=== PATIENT | female | born 1935 | race Caucasian/White ===

== ENCOUNTER 2018-08-02 08:26 | Emergency (ER) | payer OTHER ==
--- NOTE | 2018-08-02 08:29 | PDOC ---
Attending Attestation - Resident Resident Name: Jamaal Jaime - HPI HPI: 08/02/18 10:08 Pt presents to the ED complaining of the acute onset of severe vertigo this AM, with nausea, vomiting and diffuse weakness. 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 Daughter states that she did not loose consciousness, but became very weak and thus had difficulty speaking. Daughter reports that symptoms are identical to prior episodes of vertigo. Symptoms are prevented by taking meclizine, but patient does not take meclizine regularly because her assistant education director has told her that it interferes with her meds. 08/02/18 10:08 08/02/18 10:24 08/02/18 10:39 - Physicial Exam PE: 08/02/18 10:43 Agree with resident exam. PAteint is uncomfortable, and keeps her eyes closed, but is arousable to loud voice and is oriented x 3. No nystagmus. Abdomen is soft, non tender and non distended. - Medical Decision Making 08/02/18 10:44 Pt presents to the ED complaining of acute exacerbation of her chronic vertigo. Denies other complaints. Denies syncope. Will treat with IVF and meclizine, check labs and reassess. Will likely call PMD for discharge planning if labs are normal.
--- NOTE | 2018-08-02 08:31 | PDOC ---
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 According to the family the patient has had vertigo for over 40 years and they strongly believe this is her usual vertigo which is affecting her today. The family notes that the patient has not been able to keep any food down without vomiting. They also note that her vomiting episodes are food induced and is nonbloody and nonbilious. She denies chest pain, shortness of breath and headache. She denies fever, chills and diarrhea. She denies dysuria, frequency, urgency and hematuria. Allergies: NKA, NKDA Past surgical history: Hysterectomy, pacemaker Social history: No alcohol, tobacco and drug use PCP - Nehemias Lopez Neurologist: Jamie Vitale - [phone] Past History - Past Medical History Allergies/Adverse Reactions: Allergies Allergy/AdvReac Type Severity Reaction Status Date / Time No Known Allergies Allergy Verified 08/27/15 10:52 Home Medications: Ambulatory Orders Clopidogrel Bisulfate [Plavix -] 75 mg PO DAILY 08/04/15 Rosuvastatin Calcium [Crestor] 20 mg PO HS 08/04/15 metFORMIN HCL [Metformin HCl] 500 mg PO BID 08/04/15 Aspirin [Aspirin EC] 81 mg PO DAILY 08/02/18 Baclofen [Lioresal -] 10 mg PO HS 08/02/18 Betahistine HCl [Betahistine] 6 mg PO PRN PRN 08/02/18 Diltiazem HCl [Diltiazem 24Hr Cd] 120 mg PO DAILY 08/02/18 Empagliflozin [Jardiance] 10 mg PO DAILY 08/02/18 Gabapentin [Neurontin -] 100 mg PO HS 08/02/18 Lisinopril [Prinivil] 10 mg PO DAILY 08/02/18 Meclizine HCl [Antivert -] 25 mg PO Q6HPO PRN 08/02/18 Oxcarbazepine [Trileptal -] 150 mg PO BID 08/02/18 Asthma: Yes CVA: Yes (03/2015) COPD: No Diabetes: Yes HTN: Yes Hypercholesterolemia: Yes Psychiatric Problems: Yes (anxiety) Seizures: Yes - Surgical History Cardiac Surgery: Yes (pacemaker) - Immunization History Immunization Up to Date: No - Suicide/Smoking/Psychosocial Hx Smoking History: Unknown if ever smoked Have you smoked in the past 12 months: No Number of Cigarettes Smoked Daily: 0 Cigars Per Day: 0 Hx Alcohol Use: No Drug/Substance Use Hx: No Substance Use Type: None Hx Substance Use Treatment: No Review of Systems - Review of Systems Able to Perform ROS?: No (Non-responsive) *Physical Exam - Physical Exam Comments: GENERAL: Obese, lying on the bed not moving. Responds to pain. Mild apparent distress. HEENT: Normocephalic, atraumatic. PERRL, EOM intact. CARDIOVASCULAR: Normal S1, S2. Regular rate and rhythm. PULMONARY: No evidence of respiratory distress. Lungs clear to auscultation bilaterally. No wheezing, rales or rhonchi. ABDOMEN: Soft, non-distended, non-tender. EXTREMITIES: Limited ROM in all four extremities. left arm contracted. SKIN: Warm, dry. No rash NEUROLOGICAL: left arm weakness Neurologic: positive: lease analyst II-XII NML intact, Alert, Respond to painful stimul, Sensory Deficit (right arm). negative: Facial Droop, Numbness ED Treatment Course - LABORATORY CBC & Chemistry Diagram: 08/02/18 09:28 08/02/18 09:28 Medical Decision Making - Medical Decision Making 83 yo F w a pmh of diabetes, pacemaker, HTN, HLD, CVA (2014)(right sided weakness) and vertigo presents to the ER [facility] with dizziness, nausea and vomiting since early this morning. According to the family the patient has had vertigo for over 40 years and they strongly believe this is her usual vertigo which is affecting her today. The family notes that the patient has not been able to keep any food down without vomiting. They also note that her vomiting episodes are food induced and is nonbloody and nonbilious. She denies chest pain, shortness of breath and headache. She denies fever, chills and diarrhea. She denies dysuria, frequency, urgency and hematuria. The family truly believes this presentation is secondary to the patient's Vertigo and they do not want many interventions performed on her and do not want her admitted to the hospital. IV access obtained using US guidance. Labs sent. Family refuses to give urine or let us perform a cat scan. I called up the patient's PCP's office who is very familiar with this presentation for this patient. They stated she can be seen in their office tomorrow at 1 pm and agree the patient can likely be discharged safely from the hospital. Family and patient feel better after symptomatic treatment with meclizine and request discharge. - Will send her home with PCP Fu and Strict return precautions. *DC/Admit/Observation/Transfer Diagnosis at time of Disposition: Vertigo - Discharge Dispostion Disposition: HOME Condition at time of disposition: Stable Decision to Admit order: No - Referrals Referrals: Nehemias Lopez PA [Primary Care Provider] - - Patient Instructions Printed Discharge Instructions: Vertigo (Alternative Therapy), DI for Vertigo Additional Instructions: You came into the ER with nausea, vomiting, and dizziness. We believe you are experiencing a vertigo episode. We looked at your blood and saw no abnormalities. We called up your primary care doctors office and they said they can see you as an outpatient tomorrow. PLEASE MAKE SURE TO CALL UP DR. LOPEZ'S OFFICE AND SCHEDULE AN APPOINTMENT FOR TOMORROW. Come back to the ER immeidately if your pain worsens, you start vomiting, or have any other new or worsening concerns. Thank you for coming to the [facility] ER. We hope you feel better soon! Print Language: TAMAZIGHT - Post Discharge Activity
[2018-08-02] MEDS ORDERED: ONDANSETRON 4 MG/2 ML VIAL IVPUSH ONE (08:33)
[2018-08-02] MEDS: SODIUM CHLORIDE 1,000 ML IV STA ×2 (08:44→09:39)
[2018-08-02] MEDS ORDERED: ONDANSETRON 4 MG/2 ML VIAL ONE (08:44)
[2018-08-02 08:48] VITALS: BMI 32.3
[2018-08-02 09:41] LABS: BASO % 0.2 % (0-2.0); EOS % 1.2 % (0-4.5); HEMOGLOBIN 10.5 GM/dL (10.7-15.3); LYMPH % 18.2 % (8-40); MCH 21.6 pg (25.7-33.7); MEAN CELL VOLUME 69.8 fl (80-96); MONO % 5.4 % (3.8-10.2); PLATELET COUNT 289 K/MM3 (134-434); RBC 4.87 M/mm3 (3.60-5.2); RDW 18.4 % (11.6-15.6); WHITE BLOOD COUNT 9.1 K/mm3 (4.0-10.0)
[2018-08-02 09:53] LABS: INR 1.08 (0.83-1.09); PROTHROMBIN TIME (PATIENT) 12.8 SEC (9.7-13.0)
[2018-08-02] MEDS ORDERED: MECLIZINE HCL 25 MG TABLET (FP) PO ONE ×3 (10:01→11:03)
[2018-08-02] MEDS ORDERED: MECLIZINE HCL 25 MG TABLET (FP) ONE ×2 (10:05→11:07)
[2018-08-02 10:27] LABS: ALBUMIN 3.4 g/dl (3.4-5.0); ALK PHOS 116 U/L (45-117); ANION GAP 7 MMOL/L (8-16); BILIRUBIN,TOTAL 0.2 mg/dL (0.2-1); BLOOD UREA NITROGEN 11 mg/dL (7-18); CALCIUM 8.7 mg/dL (8.5-10.1); CHLORIDE 103 mmol/L (98-107); CO2 26 mmol/L (21-32); CREATININE 0.9 mg/dL (0.55-1.3); GLUCOSE,RANDOM 188 mg/dL (74-106); MAGNESIUM 2.1 mg/dL (1.8-2.4); N-TERMINAL BNP 98.7 pg/ml (5-450); SGOT/AST 20 U/L (15-37); SGPT/ALT 16 U/L (13-61); SODIUM 136 mmol/L (136-145); TOT PROT 7.8 g/dl (6.4-8.2)
[2018-08-02 12:10] VITALS: TEMP 97.8
[2018-08-02 12:13] LABS: ANISOCYTOSIS 2+; MACROCYTOSIS 0; OVALOCYTE 2+; PLATELET ESTIMATE NORMAL
[2018-08-02 13:21] VITALS: BP 134/79; PULSE 76
--- NOTE | 2018-08-03 08:28 | EKG ---
Test Reason : Blood Pressure : / mmHG Vent. Rate : 068 BPM Atrial Rate : 068 BPM P-R Int : 184 ms QRS Dur : 204 ms QT Int : 496 ms P-R-T Axes : 074 -71 073 degrees QTc Int : 527 ms Atrial-sensed ventricular-paced rhythm ABNORMAL ECG WHEN COMPARED WITH ECG OF 28-AUG-2015 12:59, ELECTRONIC VENTRICULAR PACEMAKER HAS REPLACED SINUS RHYTHM Confirmed by ANNA REYNOLDS, ANANT ([id number]) on 08/03/2018 8:28:07 AM Referred By: Confirmed By:ANANT CASTILLO MD
== END 2018-08-02 13:21 | disposition home or self-care (01) ==
LOC: JER 08:26
PROC: 3E033GC Introduction of Other Therapeutic Substance into Peripheral Vein, Percutaneous Approach (ICD-10-PCS; principal; 2018-08-02)
PROC: 3E0337Z Introduction of Electrolytic and Water Balance Substance into Peripheral Vein, Percutaneous Approach (ICD-10-PCS; 2018-08-02)
DX: R42 Dizziness and giddiness (principal); I10 Essential (primary) hypertension; E78.5 Hyperlipidemia, unspecified; Z86.73 Personal history of transient ischemic attack (TIA), and cerebral infarction without residual deficits; R53.1 Weakness
CPT/HCPCS: 36415; 71045-TC-FY; 80053; 82140; 82962; 83605; 83735; 83880; 84484; 85025; 85610; 86850; 86900; 86901; 87040; 93005; 93010; 96361; 96374; 99284-25; J7030

== ENCOUNTER 2020-12-12 18:37 | Inpatient (IN) | payer OTHER ==
[2020-12-12] MEDS ORDERED: ACETAMINOPHEN 500 MG TABLET (FP) PO ONE (19:42)
[2020-12-12] MEDS ORDERED: ACETAMINOPHEN 325 MG TABLET (FP) ONE (20:43)
[2020-12-12] MEDS ORDERED: morphine CARPU-JECT 4 MG/1 ML DISP.SYRIN IVPUSH ONE (20:50)
[2020-12-12] MEDS ORDERED: morphine SULFATE 4 MG/ML VIAL ONE (21:57)
[2020-12-12 23:42] LABS: BASO % 0.2 % (0-2.0); HEMOGLOBIN 11.2 GM/dL (10.7-15.3); LYMPH % 5.4 % (8-40); MCH 22.8 pg (25.7-33.7); MCHC 31.9 g/dl (32.0-36.0); MEAN CELL VOLUME 71.4 fl (80-96); MEAN PLT VOLUME 8.6 fl (7.5-11.1); MONO % 4.3 % (3.8-10.2); NEUT % 90.1 % (42.8-82.8); PLATELET COUNT 219 10^3/uL (134-434); RDW 18.2 % (11.6-15.6); WHITE BLOOD COUNT 16.1 K/mm3 (4.0-10.0)
[2020-12-12 23:54] LABS: CALCIUM 8.5 mg/dL (8.5-10.1)
[2020-12-12 23:55] LABS: ALBUMIN 3.4 g/dl (3.4-5.0); BLOOD UREA NITROGEN 11.6 mg/dL (7-18)
[2020-12-12 23:58] LABS: CREATININE 0.9 mg/dL (0.55-1.3)
[2020-12-12 23:59] LABS: BILIRUBIN,TOTAL 0.3 mg/dL (0.2-1); TOT PROT 7.8 g/dl (6.4-8.2)
[2020-12-13] MEDS ORDERED: ACETAMINOPHEN 325 MG TABLET (FP) PO PRN (02:28)
[2020-12-13] MEDS ORDERED: MELATONIN 5 MG TABLETS PO ONE (02:53)
[2020-12-13 07:05] LABS: HEMOGLOBIN 11.5 GM/dL (10.7-15.3); MCH 23.3 pg (25.7-33.7); MCHC 31.9 g/dl (32.0-36.0); MEAN CELL VOLUME 72.9 fl (80-96); MEAN PLT VOLUME 8.7 fl (7.5-11.1); PLATELET COUNT 226 10^3/uL (134-434); RBC 4.94 M/mm3 (3.60-5.2); RDW 18.1 % (11.6-15.6); WHITE BLOOD COUNT 12.2 K/mm3 (4.0-10.0)
[2020-12-13 07:34] LABS: ALBUMIN 3.4 g/dl (3.4-5.0); CALCIUM 8.5 mg/dL (8.5-10.1)
[2020-12-13 07:35] LABS: BLOOD UREA NITROGEN 11.8 mg/dL (7-18); MAGNESIUM 2.3 mg/dL (1.8-2.4)
[2020-12-13 07:37] LABS: CREATININE 0.8 mg/dL (0.55-1.3); PHOSPHOROUS 3.1 mg/dL (2.5-4.9)
[2020-12-13 07:38] LABS: BILIRUBIN,TOTAL 0.5 mg/dL (0.2-1)
[2020-12-13 07:39] LABS: TOT PROT 7.8 g/dl (6.4-8.2)
[2020-12-13] MEDS ORDERED: MORPHINE SULFATE 2 MG/ML VIAL IVPUSH PRN ×2 (08:00→09:25)
[2020-12-13] MEDS: INSULIN SLIDING SCALE (NOVOLOG) 1 VIAL SQ SCH ×2 (08:36→11:46)
[2020-12-13] MEDS ORDERED: ACETAMINOPHEN 1000 MG/100 ML VIAL (NON FORMULARY) IVPB PRN (09:24)
[2020-12-13 09:26] LABS: INR 1.11 (0.83-1.09); PROTHROMBIN TIME (PATIENT) 13.4 SEC (9.7-13.0)
[2020-12-13 09:29] LABS: ACTIVATED PTT 31.8 SECONDS (25.2-36.5)
[2020-12-13] MEDS ORDERED: MORPHINE SULFATE 2 MG/ML VIAL ONE (13:07)
[2020-12-13 15:31] LABS: EPI CELLS 5 /uL (0-25.1); HYALINE CASTS 2 /uL (0-3.1); PH,URINE 7.5 (5.0-8.0); URINE APPEARANCE CLOUDY; URINE BACTERIA >9,000 /uL (0-1359); URINE BILIRUBIN NEGATIVE (NEGATIVE); URINE COLOR YELLOW; URINE GLUCOSE (UA) 3+ (NEGATIVE); URINE KETONE 3+ (NEGATIVE); URINE LEUK ESTERASE 2+ (NEGATIVE); URINE NITRITE NEGATIVE (NEGATIVE); URINE PROTEIN TRACE (NEGATIVE); URINE RBC 40 /uL (0-23.9); URINE UROBILINOGEN 0.2 mg/dL (0.2-1.0); URINE WBC 2319 /uL (0-25.8)
[2020-12-13] MEDS: OXcarbazepine 150 MG TABLET (UD) PO SCH (21:34)
[2020-12-13] MEDS ORDERED: ROSUVASTATIN CA 20 MG TABLET (FP) PO SCH (22:00)
[2020-12-13] MEDS ORDERED: GABAPENTIN 100 MG CAPSULE PO SCH (22:00)
[2020-12-13] MEDS ORDERED: MONTELUKAST NA 10 MG TABLET PO SCH (22:00)
[2020-12-13] MEDS ORDERED: BACLOFEN 10 MG TABLET (FP) PO SCH (22:00)
[2020-12-14] MEDS ORDERED: ACETAMINOPHEN INJECTION 100 ML IVPB ONE (07:03)
[2020-12-14] MEDS ORDERED: DEXMEDETOMIDINE HCL 200 MCG/2 ML IVPB ONE (07:03)
[2020-12-14] MEDS ORDERED: SUCCINYLCHOLINE CHLORIDE 200 MG/10 ML SYRINGE ONE (07:11)
[2020-12-14] MEDS ORDERED: PROPOFOL 20 ML ONE ×4 (07:12→08:51)
[2020-12-14] MEDS ORDERED: KETAMINE HCL 200 MG/20 ML VIAL ONE (07:13)
[2020-12-14] MEDS ORDERED: LIDOCAINE HCL/PF 2% SDV 5ML VIAL ONE ×3 (07:17→08:49)
[2020-12-14] MEDS ORDERED: ceFAZolin SODIUM 1 GM VIAL IVPB ONE (08:20)
[2020-12-14] MEDS ORDERED: LOSARTAN POTASSIUM 50 MG TABLET PO SCH (10:00)
[2020-12-14] MEDS ORDERED: MORPHINE SULFATE 2 MG/ML VIAL IVPUSH PRN (10:43)
[2020-12-14] MEDS ORDERED: ACETAMINOPHEN 325 MG TABLET (FP) PO PRN (10:43)
[2020-12-14] MEDS ORDERED: PT OWN MED DRAWER 7, Y5N ONE ×2 (11:38→21:47)
[2020-12-14] MEDS: OXcarbazepine 150 MG TABLET (UD) PO SCH ×3 (11:43→21:49)
[2020-12-14] MEDS: LOSARTAN POTASSIUM 50 MG TABLET PO SCH (11:43)
[2020-12-14 16:10] LABS: HEMATOCRIT 34.4 % (32.4-45.2); HEMOGLOBIN 10.9 GM/dL (10.7-15.3); MCHC 31.7 g/dl (32.0-36.0); MEAN CELL VOLUME 72.6 fl (80-96); MEAN PLT VOLUME 9.1 fl (7.5-11.1); PLATELET COUNT 202 10^3/uL (134-434); RBC 4.73 M/mm3 (3.60-5.2); RDW 18.9 % (11.6-15.6); WHITE BLOOD COUNT 14.1 K/mm3 (4.0-10.0)
[2020-12-14 16:41] LABS: CALCIUM 8.4 mg/dL (8.5-10.1)
[2020-12-14 16:42] LABS: BLOOD UREA NITROGEN 10.7 mg/dL (7-18)
[2020-12-14 16:45] LABS: CREATININE 0.9 mg/dL (0.55-1.3)
[2020-12-14 16:47] LABS: BILIRUBIN,TOTAL 0.7 mg/dL (0.2-1)
[2020-12-14] MEDS: CEFAZOLIN 1 GM/D5W 1 GM/50 ML BAG IVPB SCH (17:38)
[2020-12-14] MEDS: INSULIN SLIDING SCALE (NOVOLOG) 1 VIAL SQ SCH (21:43)
[2020-12-14] MEDS: MONTELUKAST NA 10 MG TABLET PO SCH (21:49)
[2020-12-14] MEDS: GABAPENTIN 100 MG CAPSULE PO SCH (21:49)
[2020-12-14] MEDS: BACLOFEN 10 MG TABLET (FP) PO SCH (21:49)
[2020-12-14] MEDS: ROSUVASTATIN CA 20 MG TABLET (FP) PO SCH (21:49)
[2020-12-14] MEDS ORDERED: OXcarbazepine 150 MG TABLET (UD) PO SCH (22:00)
[2020-12-15] MEDS ORDERED: SODIUM CHLORIDE 500 ML IV STA (00:36)
[2020-12-15] MEDS: CEFAZOLIN 1 GM/D5W 1 GM/50 ML BAG IVPB SCH (01:23)
[2020-12-15] MEDS: INSULIN SLIDING SCALE (NOVOLOG) 1 VIAL SQ SCH ×4 (06:14→21:00)
[2020-12-15] MEDS ORDERED: CEFTRIAXONE 1 GM in DEXTROSE 5%-WATER - 50 ML IVPB SCH (10:00)
[2020-12-15] MEDS ORDERED: PT OWN MED DRAWER 7, Y5N ONE (10:00)
[2020-12-15] MEDS ORDERED: DEXTROSE 5%-WATER - 50 ML IVPB ONE (10:00)
[2020-12-15] MEDS ORDERED: cefTRIAXone SODIUM 1 GM VIAL ONE (10:00)
[2020-12-15] MEDS ORDERED: LOSARTAN POTASSIUM 50 MG TABLET PO SCH (10:00)
[2020-12-15] MEDS: OXcarbazepine 150 MG TABLET (UD) PO SCH ×2 (10:05→21:30)
[2020-12-15] MEDS: LOSARTAN POTASSIUM 50 MG TABLET PO SCH (10:05)
[2020-12-15] MEDS: oxyCODONE HCL 5 MG TABLET PO PRN ×2 (10:36→21:49)
[2020-12-15] MEDS ORDERED: INSULIN (NOVOLOG) ASPART 100 UNITS/ML 10ML VIAL ONE (11:56)
[2020-12-15 12:03] LABS: HEMATOCRIT 32.8 % (32.4-45.2); HEMOGLOBIN 10.7 GM/dL (10.7-15.3); MCH 23.1 pg (25.7-33.7); MCHC 32.5 g/dl (32.0-36.0); MEAN PLT VOLUME 8.9 fl (7.5-11.1); PLATELET COUNT 187 10^3/uL (134-434); RBC 4.62 M/mm3 (3.60-5.2); RDW 18.7 % (11.6-15.6); WHITE BLOOD COUNT 10.9 K/mm3 (4.0-10.0)
[2020-12-15 12:21] LABS: CALCIUM 8.2 mg/dL (8.5-10.1)
[2020-12-15 12:22] LABS: BLOOD UREA NITROGEN 17.7 mg/dL (7-18)
[2020-12-15 12:25] LABS: CREATININE 1.1 mg/dL (0.55-1.3)
[2020-12-15 16:04] LABS: BASO % 0.7 % (0-2.0); EOS % 1.4 % (0-4.5); HEMATOCRIT 29.7 % (32.4-45.2); HEMOGLOBIN 9.6 GM/dL (10.7-15.3); LYMPH % 15.2 % (8-40); MCH 22.8 pg (25.7-33.7); MCHC 32.3 g/dl (32.0-36.0); MEAN CELL VOLUME 70.6 fl (80-96); MEAN PLT VOLUME 8.6 fl (7.5-11.1); MONO % 10.5 % (3.8-10.2); NEUT % 72.2 % (42.8-82.8); PLATELET COUNT 202 10^3/uL (134-434); RBC 4.21 M/mm3 (3.60-5.2); RDW 18.6 % (11.6-15.6)
[2020-12-15 16:28] VITALS: BMI 33.2
[2020-12-15] MEDS ORDERED: CEPHALEXIN MONOHYDRATE 500 MG CAPSULE (UD) PO SCH (18:00)
[2020-12-15] MEDS: BACLOFEN 10 MG TABLET (FP) PO SCH (21:29)
[2020-12-15] MEDS: MONTELUKAST NA 10 MG TABLET PO SCH (21:30)
[2020-12-15] MEDS: GABAPENTIN 100 MG CAPSULE PO SCH (21:30)
[2020-12-15] MEDS: ROSUVASTATIN CA 20 MG TABLET (FP) PO SCH (21:30)
[2020-12-16] MEDS: CEPHALEXIN MONOHYDRATE 500 MG CAPSULE (UD) PO SCH ×2 (06:24→14:07)
[2020-12-16] MEDS: INSULIN SLIDING SCALE (NOVOLOG) 1 VIAL SQ SCH ×2 (06:27→11:49)
[2020-12-16 06:54] VITALS: TEMP 98.5
[2020-12-16] MEDS ORDERED: PT OWN MED DRAWER 7, Y5N ONE ×2 (09:14→16:02)
[2020-12-16] MEDS: OXcarbazepine 150 MG TABLET (UD) PO SCH (09:47)
[2020-12-16] MEDS: LOSARTAN POTASSIUM 50 MG TABLET PO SCH (09:47)
[2020-12-16] MEDS: oxyCODONE HCL 5 MG TABLET PO PRN (09:59)
[2020-12-16] MEDS ORDERED: ASPIRIN COATED 81 MG TABLET.EC PO SCH (10:00)
[2020-12-16] MEDS ORDERED: CLOPIDOGREL BISULFATE 75 MG TABLET (FP) PO SCH (10:00)
[2020-12-16] MEDS ORDERED: SENNOSIDES 8.6MG TABLET (FP) PO SCH (10:00)
[2020-12-16] MEDS ORDERED: DOCUSATE SODIUM 100 MG CAPSULE (FP) PO SCH (10:00)
[2020-12-16 11:14] LABS: VENOUS BASE EXCESS 2.5 mmol/L (-2-2); VENOUS O2 SATURATION 99.3 % (70-80); VENOUS PCO2 39.6 mmHg (38-52); VENOUS PH 7.447 (7.310-7.410)
[2020-12-16 11:22] LABS: HEMATOCRIT 29.9 % (32.4-45.2); HEMOGLOBIN 9.4 GM/dL (10.7-15.3); MCH 22.5 pg (25.7-33.7); MCHC 31.5 g/dl (32.0-36.0); MEAN CELL VOLUME 71.4 fl (80-96); MEAN PLT VOLUME 9.1 fl (7.5-11.1); PLATELET COUNT 192 10^3/uL (134-434); RBC 4.18 M/mm3 (3.60-5.2); RDW 18.7 % (11.6-15.6); WHITE BLOOD COUNT 13.5 K/mm3 (4.0-10.0)
[2020-12-16 11:42] LABS: BLOOD UREA NITROGEN 23.9 mg/dL (7-18); CALCIUM 7.8 mg/dL (8.5-10.1)
[2020-12-16 11:45] LABS: CREATININE 1.3 mg/dL (0.55-1.3)
[2020-12-16] MEDS ORDERED: IRON SUCROSE INJECTION 200 MG in SODIUM CHLORIDE 90 ML IVPB ONE (13:00)
[2020-12-16 14:53] VITALS: BP 95/51; PULSE 107
== END 2020-12-16 21:59 | DRG 481 ==
LOC: JER 18:37 → JERBED 22:07 → J6S 12-13 15:03
PROVIDERS: ADMIT Internal Medicine; ATTEND Internal Medicine
PROC: 0QS706Z Reposition Left Upper Femur with Intramedullary Internal Fixation Device, Open Approach (ICD-10-PCS; principal; 2020-12-14 07:30)
DX: S72.142A Displaced intertrochanteric fracture of left femur, initial encounter for closed fracture (principal); I69.351 Hemiplegia and hemiparesis following cerebral infarction affecting right dominant side; N39.0 Urinary tract infection, site not specified; E11.9 Type 2 diabetes mellitus without complications; E78.00 Pure hypercholesterolemia, unspecified; I10 Essential (primary) hypertension; J45.909 Unspecified asthma, uncomplicated; I25.119 Atherosclerotic heart disease of native coronary artery with unspecified angina pectoris; F41.9 Anxiety disorder, unspecified; D72.829 Elevated white blood cell count, unspecified; D50.9 Iron deficiency anemia, unspecified; R56.9 Unspecified convulsions; E66.9 Obesity, unspecified; Z68.33 Body mass index [BMI] 33.0-33.9, adult; W18.30XA Fall on same level, unspecified, initial encounter; Y92.091 Bathroom in other non-institutional residence as the place of occurrence of the external cause; B96.20 Unspecified Escherichia coli [E. coli] as the cause of diseases classified elsewhere; Z95.0 Presence of cardiac pacemaker
CPT/HCPCS: 36415; 70450-TC; 73523-TC-FY; 73552-TC-LT-FY; 76000-TC-FY; 80048; 80053; 81003; 82728; 82803; 82962; 83036; 83540; 83550; 83735; 84100; 85025; 85027; 85610; 85730; 86850; 86900; 86901; 87040; 87086; 87186; 93005; 93010; 94760; 97162-GP; 99285-25; C9803; J0131; J0475; J1756; U0003; U0005

== ENCOUNTER 2022-08-04 12:34 | Inpatient (IN) | payer OTHER ==
[2022-08-04 13:28] LABS: BASO % 0.5 % (0-2.0); EOS % 2.2 % (0-4.5); LYMPH % 36.8 % (8-40); MCH 24.9 pg (25.7-33.7); MCHC 33.3 g/dl (32.0-36.0); MEAN CELL VOLUME 74.9 fl (80-96); MEAN PLT VOLUME 8.6 fl (7.5-11.1); MONO % 6.8 % (3.8-10.2); NEUT % 53.7 % (42.8-82.8); PLATELET COUNT 278 10^3/uL (134-434); RBC 5.21 M/mm3 (3.60-5.2); RDW 17.9 % (11.6-15.6); WHITE BLOOD COUNT 11.9 K/mm3 (4.0-10.0)
[2022-08-04 13:34] LABS: INR 1.08 (0.83-1.09); PROTHROMBIN TIME (PATIENT) 12.5 SEC (9.7-13.0)
[2022-08-04 13:37] LABS: ACTIVATED PTT 28.6 SECONDS (25.2-36.5)
[2022-08-04 13:56] LABS: POTASSIUM 4.5 mmol/L (3.5-5.1)
[2022-08-04 13:59] LABS: ALBUMIN 3.3 g/dl (3.4-5.0); BLOOD UREA NITROGEN 9.6 mg/dL (7-18); CALCIUM 8.8 mg/dL (8.5-10.1); MAGNESIUM 2.2 mg/dL (1.8-2.4)
[2022-08-04 14:03] LABS: TOT PROT 7.7 g/dl (6.4-8.2)
[2022-08-04] MEDS ORDERED: ASPIRIN 81 MG CHEWABLE TABLETS PO ONE (14:18)
[2022-08-04 14:19] LABS: BILIRUBIN,TOTAL 0.3 mg/dL (0.2-1)
[2022-08-04] MEDS ORDERED: ASPIRIN 81 MG CHEWABLE TABLETS ONE (14:27)
[2022-08-04 16:39] LABS: PH,URINE 7.5 (5.0-8.0); URINE APPEARANCE CLEAR; URINE BILIRUBIN NEGATIVE (NEGATIVE); URINE COLOR YELLOW; URINE GLUCOSE (UA) 3+ (NEGATIVE); URINE KETONE NEGATIVE (NEGATIVE); URINE LEUK ESTERASE NEGATIVE (NEGATIVE); URINE NITRITE NEGATIVE (NEGATIVE); URINE PROTEIN NEGATIVE (NEGATIVE); URINE UROBILINOGEN 0.2 mg/dL (0.2-1.0)
[2022-08-04] MEDS ORDERED: ACETAMINOPHEN 325 MG TABLET (FP) PO PRN (17:02)
[2022-08-04] MEDS ORDERED: ROSUVASTATIN CA 20 MG TABLET ONE (21:55)
[2022-08-04] MEDS ORDERED: MONTELUKAST NA 10 MG TABLET ONE (21:55)
[2022-08-04] MEDS: MONTELUKAST NA 10 MG TABLET PO SCH (21:58)
[2022-08-04] MEDS: ROSUVASTATIN CA 20 MG TABLET PO SCH (21:58)
[2022-08-04] MEDS: OXcarbazepine 150 MG TABLET (UD) PO SCH (21:58)
[2022-08-04] MEDS: INSULIN SLIDING SCALE (NOVOLOG) 1 VIAL SQ SCH (21:59)
[2022-08-05 00:49] VITALS: BMI 36.1
[2022-08-05] MEDS: INSULIN SLIDING SCALE (NOVOLOG) 1 VIAL SQ SCH ×4 (06:29→22:10)
[2022-08-05] MEDS: metFORMIN HCL 500 MG TABLET (FP) PO SCH ×2 (06:51→16:13)
[2022-08-05] MEDS: LOSARTAN POTASSIUM 50 MG TABLET PO SCH (10:49)
[2022-08-05] MEDS: BACLOFEN 10 MG TABLET (FP) PO SCH (10:49)
[2022-08-05] MEDS: CLOPIDOGREL BISULFATE 75 MG TABLET (FP) PO SCH (10:49)
[2022-08-05] MEDS: ASPIRIN COATED 81 MG TABLET.EC PO SCH (10:49)
[2022-08-05] MEDS: OXcarbazepine 150 MG TABLET (UD) PO SCH ×2 (10:49→22:11)
[2022-08-05 11:14] LABS: HEMATOCRIT 39.5 % (32.4-45.2); HEMOGLOBIN 12.9 GM/dL (10.7-15.3); MCH 24.8 pg (25.7-33.7); MCHC 32.8 g/dl (32.0-36.0); MEAN CELL VOLUME 75.7 fl (80-96); MEAN PLT VOLUME 8.7 fl (7.5-11.1); PLATELET COUNT 218 10^3/uL (134-434); RBC 5.22 M/mm3 (3.60-5.2); WHITE BLOOD COUNT 8.3 K/mm3 (4.0-10.0)
[2022-08-05] MEDS: MONTELUKAST NA 10 MG TABLET PO SCH (22:11)
[2022-08-05] MEDS: ROSUVASTATIN CA 20 MG TABLET PO SCH (22:11)
[2022-08-06] MEDS: metFORMIN HCL 500 MG TABLET (FP) PO SCH (06:08)
[2022-08-06] MEDS: INSULIN SLIDING SCALE (NOVOLOG) 1 VIAL SQ SCH ×2 (06:09→10:22)
[2022-08-06] MEDS: OXcarbazepine 150 MG TABLET (UD) PO SCH (09:58)
[2022-08-06] MEDS: CLOPIDOGREL BISULFATE 75 MG TABLET (FP) PO SCH (09:58)
[2022-08-06] MEDS: ASPIRIN COATED 81 MG TABLET.EC PO SCH (09:58)
[2022-08-06] MEDS: LOSARTAN POTASSIUM 50 MG TABLET PO SCH (09:58)
[2022-08-06] MEDS: BACLOFEN 10 MG TABLET (FP) PO SCH (09:58)
[2022-08-06 13:16] LABS: N-TERMINAL BNP 80.1 pg/ml (5-450)
[2022-08-06 15:40] VITALS: RESP 19; TEMP 97.7
[2022-08-06 15:42] VITALS: BP 128/55; PULSE 78
== END 2022-08-06 15:49 | disposition home or self-care (01) | DRG 312 ==
LOC: JER 12:34 → JERBED 15:37 → OBSVTOIN 16:59 → J4W 22:26
PROVIDERS: ADMIT Family Medicine; ATTEND Family Medicine
DX: R55 Syncope and collapse (principal); I69.351 Hemiplegia and hemiparesis following cerebral infarction affecting right dominant side; I10 Essential (primary) hypertension; I25.119 Atherosclerotic heart disease of native coronary artery with unspecified angina pectoris; E78.5 Hyperlipidemia, unspecified; I49.5 Sick sinus syndrome; E11.9 Type 2 diabetes mellitus without complications; R07.89 Other chest pain; Z95.0 Presence of cardiac pacemaker; E66.8 Other obesity; Z68.36 Body mass index [BMI] 36.0-36.9, adult
CPT/HCPCS: 0241U-QW; 36415; 70450-TC; 71045-TC-FY; 80053; 80061; 81003; 82550; 82962; 83036; 83735; 83880; 84443; 84484; 85025; 85027; 85610; 85730; 87086; 87186; 93005; 93010; 99285-25; G0378; J0475